=== PATIENT | male | born 1975 | race Two or more races ===

== ENCOUNTER 2022-08-19 13:07 | Emergency (ER) | payer OTHER ==
[~2022-08-19] VITALS: Ht 177.8 cm; Wt 71.7 kg
== END 2022-08-19 14:38 | disposition home or self-care (01) ==
LOC: ER 13:07
DX: S43.004A Unspecified dislocation of right shoulder joint, initial encounter (principal); W19.XXXA Unspecified fall, initial encounter; Y93.9 Activity, unspecified; Y92.9 Unspecified place or not applicable; Y99.9 Unspecified external cause status